=== PATIENT | male | born 1985 | race Two or more races ===

== ENCOUNTER 2023-08-17 19:39 | Emergency (ER) | payer OTHER ==
[~2023-08-17] VITALS: Ht 177.8 cm; Wt 99.8 kg
[~2023-08-17 19:39] MED LIST: AMOX-CLAV 875-1 EAC1 PO
== END 2023-08-17 22:49 | disposition home or self-care (01) ==
LOC: ER 19:40
DX: M79.604 Pain in right leg (principal)

== ENCOUNTER 2023-08-23 14:37 | Emergency (ER) | payer OTHER ==
[~2023-08-23] VITALS: Ht 167.6 cm; Wt 72.6 kg
[2023-08-23] MEDS ORDERED: DICLOFENAC SODI75 MG PO (14:57)
== END 2023-08-23 15:09 | disposition home or self-care (01) ==
LOC: ER 14:37
DX: Z48.02 Encounter for removal of sutures (principal)